=== PATIENT | female | born 1975 | race Caucasian/White ===

== ENCOUNTER 2016-08-09 03:51 | Emergency (ER) | payer OTHER ==
--- NOTE | 2016-08-09 05:12 | ED CLINICAL REPORT ---
Clinical Report - Physicians/Mid Levels [facility] [address] [place] [address] 08/09/2016 3:56 Patient: LOUISE FORBES Arrived- By private vehicle. Historian- patient. HISTORY OF PRESENT ILLNESS Chief Complaint: Injury to the left hand. The injury happened today. 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 Patient is experiencing moderate pain. Patient denies injury to the head or neck. No other injury. REVIEW OF SYSTEMS The patient sustained a laceration. No swelling, tingling, numbness, weakness or foreign body. All systems otherwise negative, except as recorded above. PAST HISTORY See nurses notes. Tetanus immunization status is up-to-date. Medications: None. Allergies: No Known Drug Allergy. SOCIAL HISTORY Smoker- current status unknown. No alcohol use or drug use. Is a local resident. ADDITIONAL NOTES The nursing notes have been reviewed. PHYSICAL EXAM Vital Signs: 08/09/2016 04:12 BP: 178/105. HR: 92. RR: 16. O2 saturation: 98%. Temp: 98.5 F. Hypertensive. Oxygen saturation normal. Appearance: Alert. Oriented X3. No acute distress. Head: Head atraumatic. Eyes: Pupils equal, round and reactive to light. Eyes normal inspection. ENT: Ears normal. Nose normal. Pharynx normal. Neck: Normal inspection. Neck supple. C-spine non-tender. CVS: Normal heart rate and rhythm. Heart sounds normal. Pulses normal. Respiratory: No respiratory distress. Breath sounds normal. Chest nontender. Abdomen: No visible injury. Soft and nontender. Bowel sounds normal. No organomegaly. No mass. Femoral pulses equal. Extremities: (2 cm lac to the dorsum of the left hand over the index finger MCP joint. Does not go into joint. NO tendon involvement. NO neurovascular involvement on exam. Sensation intact. Cap refill < 3 sec. No contamination or FB. Does go to the sub Q tissue. No bone exposed.). Extremities otherwise negative. PROGRESS AND PROCEDURES Laceration Repair: Wound depth/shape- subcutaneous. Distal neuro/vascular/tendon status normal. No sensory deficit, motor deficit or vascular deficit distally. No ligament or tendon injury or tendon deficit or laceration. Local anesthesia provided using 1% lidocaine. Prepped with Betadine. Wound explored, irrigated and examined to the base in bloodless field extensively with normal saline. Closure of skin: interrupted 4-0 nylon (4 sutures). Post-procedure: she is stable and there are no complications. Bleeding is controlled and neuro-vascular status is intact distal to the wound. Clean dressing consisting of Band-Aid was applied. Following the application of antibiotic ointment. Tetanus immunization up-to-date. ( patient very anxious about procedure. Requested tech for reassurance and comfort. Did tolerate procedure well.). Course of Care: he patient is a pleasant 41-year-old female presenting for evaluation of laceration to the dorsum of the left hand. No neurovascular involvement. Bleeding is controlled. Tetanus status is up-to-date. Wound is linear and regular. No signs of foreign body. Do not feel x-rays are warranted at this time. No ligamentous involvement. Does not go into the joint. Had discussion with patient in regards to Dermabond versus suturing. Recommended suturing at this time however patient was very hesitant about procedure. Patient reports that she is very nervous with needles. Patient had a somewhat difficult time in controlling her anxiety for the procedure. Patient was eventually agreeable to the procedure of suturing. Informed verbal consent obtained. Please see procedure note for further details. Wound was closed without any competitions or abnormalities. Patient continued to be neurovascularly intact. Do not feel antibiotics are warranted at this time. Wound infection risk explained to patient. Discussed with patient workup, diagnosis, home care, follow-up, and return precautions. All questions answered. The patient expressed understanding of these instructions and was agreeable to them. Disposition: Discharged. Condition: good. CLINICAL IMPRESSION 08/09/2016 04:12 BP: 178/105. HR: 92. RR: 16. O2 saturation: 98%. Temp: 98.5 F. Hypertensive. Oxygen saturation normal. Single superficial laceration to the left hand. (dorsal). No foreign body present. Essential hypertension. INSTRUCTIONS (Keep dry for 24 hours. You may wash the area with gentle soap and warm water after 24 hours. You are NOT to soak the wound at anytime until the wound is closed AND the sutures are removed. Sutures need to be in for 10 - 14 days). Your Current Medications: CONTINUE TAKING THE FOLLOWING MEDICATIONS: None*. OTC Medications: Acetaminophen (available over the counter): take according to label instructions. Motrin (available over the counter): take according to label instructions. Follow-up: Return to the emergency department as needed. Follow up with your doctor in five days. Reason for referral: recheck today's concerns. Summary of care provided to patient via paper. Screening today revealed the patient's blood pressure to be in the hypertensive range. The patient should follow up with a primary care provider for blood pressure management. Understanding of the discharge instructions verbalized by patient. (Electronically signed by Chris Ludwig Dr. 08/15/2016 22:02)
--- NOTE | 2016-08-09 05:12 | ED NURSING NOTES ---
Clinical Report - Nurses [facility] [address] [place] [address] 08/09/2016 3:56 Patient: LOUISE FORBES TRIAGE Triage time 0405. Acuity: LEVEL 4. Chief Complaint: INJURY TO THE LEFT HAND. Alert. No acute distress. (agitated, hyper, rapid speech). --04:16 Vita Quan 04:12 08/09/16. BP: 178/105. HR: 92. RR: 16. O2 saturation: 98%. Temp: 98.5 F. Pain level now 07/15. --04:16 Vita Quan. Weight: 77.1 kg. Height/Length: 66 inches. BMI: 27.4. --04:12 Vita Quan. Medications None. --04:14 Vita Quan. Allergies No Known Drug Allergy. --04:14 Vita Quan. History Arrived by private vehicle. Historian: patient. This occurred just prior to arrival. She sustained a laceration. 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 PAST MEDICAL HX: Tetanus status: up-to-date. SOCIAL HX: Heavy tobacco smoker (cigarette)- 1 pack per day. Alcohol use; consumes three beers a day. Patient smells of ETOH in the emergency department. --04:16 Vita Quan. Interventions ID band on patient. To treatment room. --04:16 Vita Quan. PHYSICAL ASSESSMENT Ambulatory to room. GENERAL / NEURO / PSYCH: Oriented X 4. Appears anxious. EXTREMITIES: Capillary refill is less than 2 seconds in the extremities. Extremity pulses are within normal limits. Extremities exhibit normal ROM. Neuro-vascular status intact to the extremity. Left hand: subcutaneous 1.5 cm laceration with controlled bleeding localized to the dorsal aspect of the hand. SKIN: Skin is warm and dry. --04:17 Vita Quan. DISPOSITION / DISCHARGE Departure time: 05. Condition at departure: improved and stable. No learning barriers present. Discharge instructions provided and reviewed with the patient. Reviewed medication(s). Patient verbalized understanding. Written instructions provided in Congolese. The patient was discharged by the physician. She was discharged home. She left the Emergency Department ambulatory and via private vehicle. Patient driving. --05:24 Vita Quan 05:23 08/09/16. BP: 155/98. HR: 70. RR: 18. O2 saturation: 98%. Pain level now 07/15. --05:24 Vita Quan. Locked/Released at 08/09/2016 5:25 by Vita Quan,
--- NOTE | 2016-08-09 05:12 | ED NURSING NOTES ---
Clinical Report - Nurses [facility] [address] [place] [address] 08/09/2016 3:56 Patient: LOUISE FORBES TRIAGE Triage time 0405. Acuity: LEVEL 4. Chief Complaint: INJURY TO THE LEFT HAND. Alert. No acute distress. (agitated, hyper, rapid speech). --04:16 Vita Quan 04:12 08/09/16. BP: 178/105. HR: 92. RR: 16. O2 saturation: 98%. Temp: 98.5 F. Pain level now 07/15. --04:16 Vita Quan. Weight: 77.1 kg. Height/Length: 66 inches. BMI: 27.4. --04:12 Vita Quan. Medications None. --04:14 Vita Quan. Allergies No Known Drug Allergy. --04:14 Vita Quan. History Arrived by private vehicle. Historian: patient. This occurred just prior to arrival. She sustained a laceration. 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 PAST MEDICAL HX: Tetanus status: up-to-date. SOCIAL HX: Heavy tobacco smoker (cigarette)- 1 pack per day. Alcohol use; consumes three beers a day. Patient smells of ETOH in the emergency department. --04:16 Vita Quan. Interventions ID band on patient. To treatment room. --04:16 Vita Quan. PHYSICAL ASSESSMENT Ambulatory to room. GENERAL / NEURO / PSYCH: Oriented X 4. Appears anxious. EXTREMITIES: Capillary refill is less than 2 seconds in the extremities. Extremity pulses are within normal limits. Extremities exhibit normal ROM. Neuro-vascular status intact to the extremity. Left hand: subcutaneous 1.5 cm laceration with controlled bleeding localized to the dorsal aspect of the hand. SKIN: Skin is warm and dry. --04:17 Vita Quan. DISPOSITION / DISCHARGE Departure time: 05. Condition at departure: improved and stable. No learning barriers present. Discharge instructions provided and reviewed with the patient. Reviewed medication(s). Patient verbalized understanding. Written instructions provided in Brazilian. The patient was discharged by the physician. She was discharged home. She left the Emergency Department ambulatory and via private vehicle. Patient driving. --05:24 Vita Quan 05:23 08/09/16. BP: 155/98. HR: 70. RR: 18. O2 saturation: 98%. Pain level now 07/15. --05:24 Vita Quan. Locked/Released at 08/09/2016 5:25 by Vita Quan,
--- NOTE | 2016-08-15 22:03 | ED MED RECONCILIATION SUMMARY ---
Patient: LOUISE FORBES Medication Reconciliation Report [facility] VisitID: [id number] [address] [place] [address] 41y, F Registration Date/Time: 08/09/2016 Weight: 77.1 kg Height/Length: 66 in. BMI: 27.4 ALLERGIES: No Known Drug Allergy The patient's Home Medications are listed below: NONE. The source(s) of the original Home Medication information: Not obtained. The following Medications were given to the patient in the Emergency Department: None. The following Medications were prescribed to the patient: Acetaminophen (available over the counter): take according to label instructions. -- Chris Ludwig Dr. Motrin (available over the counter): take according to label instructions. -- Chris Ludwig Dr.
--- NOTE | 2016-08-15 22:03 | ED MED RECONCILIATION SUMMARY ---
Patient: LOUISE FORBES Medication Reconciliation Report [facility] VisitID: [id number] [address] [place] [address] 41y, F Registration Date/Time: 08/09/2016 Weight: 77.1 kg Height/Length: 66 in. BMI: 27.4 ALLERGIES: No Known Drug Allergy The patient's Home Medications are listed below: NONE. The source(s) of the original Home Medication information: Not obtained. The following Medications were given to the patient in the Emergency Department: None. The following Medications were prescribed to the patient: Acetaminophen (available over the counter): take according to label instructions. -- Chris Ludwig Dr. Motrin (available over the counter): take according to label instructions. -- Chris Ludwig Dr.
--- NOTE | 2016-08-15 22:03 | ED DISCHARGE INSTRUCTIONS ---
Patient: LOUISE FORBES General Instructions [facility] VisitID: [id number] [place] [address] 41y, F Registration Date/Time: 08/09/2016 08/09/2016 04:12 BP: 178/105. HR: 92. RR: 16. O2 saturation: 98%. Temp: 98.5 F. Hypertensive. Oxygen saturation normal. Single superficial laceration to the left hand. (dorsal). No foreign body present. Essential hypertension. INSTRUCTIONS (Keep dry for 24 hours. You may wash the area with gentle soap and warm water after 24 hours. You are NOT to soak the wound at anytime until the wound is closed AND the sutures are removed. Sutures need to be in for 10 - 14 days). Your Current Medications: CONTINUE TAKING THE FOLLOWING MEDICATIONS: None*. OTC Medications: Acetaminophen (available over the counter): take according to label instructions. Motrin (available over the counter): take according to label instructions. Follow-up: Return to the emergency department as needed. Follow up with your doctor in five days. Reason for referral: recheck today's concerns. Summary of care provided to patient via paper. Screening today revealed the patient's blood pressure to be in the hypertensive range. The patient should follow up with a primary care provider for blood pressure management. Understanding of the discharge instructions verbalized by patient. ADDITIONAL INFORMATION Laceration (All Closures) Alaceration is a cut through the skin. This will usually require stitches (sutures) or fallon if it is deep. Minor cuts may be treated with a surgical tape closure orskin glue. Home care The following guidelines will help you care for your laceration at home: Extremity, face, or trunk wounds Keep the wound clean and dry. If a bandage was applied and it becomes wet or dirty, replace it. Otherwise, leave it in place for the first 24 hours. If stitches or fallon were used, clean the wound daily. After removing the bandage, wash the area with soap and water. Use a wet cotton swab to loosen and remove any blood or crust that forms. The doctor may prescribe an antibiotic cream or ointment to prevent infection. Do not stop taking this medication until you have finished the prescribed course or the doctor tells you to stop. The doctor may also prescribe medications for pain. Follow the doctors instructions for taking these medications. You may remove the bandage to shower as usual after the first 24 hours, but do not soak the area in water (no swimming) until the stitches or fallon are removed. If surgical tape was used, keep the area clean and dry. If it becomes wet, blot it dry with a towel. If skin glue was used, do not scratch, rub, or pick at the adhesive film. Do not place tape directly over the film. Do not apply liquid, ointment, or creams to the wound while the film is in place. Do not clean the wound with peroxide and do not apply ointments. Avoid activities that cause heavy sweating until the film has fallen off. Protect the wound from prolonged exposure to sunlight or tanning lamps. You may shower as usual but do not soak the wound in water (no baths or swimming). The film will fall off by itself in 510 days. Scalp wounds During the first two days, you may carefully rinse your hair in the shower to remove blood, glass or dirt particles. After two days, you may shower and shampoo your hair normally. Do not soak your scalp in the tub or go swimming until the stitches or fallon have been removed. Talk with your doctor before applying any antibiotic ointment to the wound. Mouth wounds Eat soft foods to reduce pain. If the cut is inside of your mouth, clean by rinsing after each meal and at bedtime with a mixture of equal parts water and hydrogen peroxide (do not swallow!). Or, you can use a cotton swab to directly apply hydrogen peroxide onto the cut. Mouth wounds can be painful when eating. You may use an [id number] local numbing solution for pain relief. If this is not available, you may use any numbing solution for teething babies. You may apply this directly to the sores with a cotton-tip swab or with your finger. Follow-up care Follow up with your health care provider. Most skin wounds heal within ten days. Mouth and facial wounds heal within five days. However, even with proper treatment, a wound infection may sometimes occur. Therefore, you should check the wound daily for signs of infection listed below. Stitches should be removed from the face within five days; stitches and fallon should be removed from other parts of the body within 714 days. If dissolving stitches were used in the mouth, these will fall out or dissolve without the need for removal. If tape closures were used, remove them yourself if they have not fallen off after 7 days. Ifskin glue was used, the film will fall off by itself in 510 days. When to seek medical care Get prompt medical attention if any of these occur: Bleeding not controlled by direct pressure Signs of infection, including increasing pain in the wound, increasing wound redness or swelling, or pus coming from the wound Fever of 100.4F (38C) or higher, or as directed by your health care provider Stitches or fallon come apart or fall out or surgical tape falls off before 7 days Wound edges re-open High Blood Pressure -- To Be Confirmed [No Tx] Your blood pressure was higher today than normal. Sometimes anxiety or pain can cause a temporary rise in blood pressure that later returns to normal. If your blood pressure is high on one measurement, this does not mean that you have hypertension (a chronic illness). However, you must have your blood pressure measured again within the next few days to find out if its still high. A normal blood pressure is 120/80 or less. The first (top) number is the "systolic" pressure. The second (bottom) number is the "diastolic" pressure. Hypertension exists when either the top number is 140 or higher, OR the bottom number is 90 or higher on repeated measurements. Blood pressure in the range of 120-140 (systolic) or 80-89 (diastolic) is considered "pre-hypertension". This means your are at risk for getting hypertension. You should have regular blood pressure checks to be sure your blood pressure is not rising. Home Care: Measure your blood pressure on 3 different days and write down the results. This can be done at your doctor's office or this facility. Some pharmacies and grocery stores offer automated blood pressure machines for your use. Follow Up: If your blood pressure is "high" (over 120/80) on 2 out of 3 days, you will need to follow up with your doctor for further evaluation and treatment. DO NOT PUT THIS OFF! Untreated high blood pressure increases the risk for heart attack, also known as acute myocardial infarction, or AMI, and stroke. It is a treatable condition. Get Prompt Medical Attention if any of the following occur: Chest pain or shortness of breath Severe headache Throbbing or rushing sound in the ears Nosebleed Sudden severe abdominal pain Extreme drowsiness, confusion or fainting Dizziness or vertigo (dizziness with spinning sensation) Weakness of an arm or leg or one side of the face Difficulty with speech or vision You have been given the following additional information: Laceration, All Hypertension, To Be Confirmed (Electronically signed by Chris Ludwig Dr. 08/15/2016 22:02)
--- NOTE | 2016-08-15 22:03 | ED MAR SUMMARY ---
..... Medication Administration Record [facility] [address] [place], [place] [id number] Patient: LOUISE FORBES Visit ID: [id number] 41y, F Weight: 77.1 kg Height/Length: 66 in BMI: 27.4 ALLERGIES: No Known Drug Allergy
--- NOTE | 2016-08-15 22:03 | ED MAR SUMMARY ---
..... Medication Administration Record [facility] [address] [place], [place] [id number] Patient: LOUISE FORBES Visit ID: [id number] 41y, F Weight: 77.1 kg Height/Length: 66 in BMI: 27.4 ALLERGIES: No Known Drug Allergy
== END 2016-08-09 05:20 | disposition home or self-care (01) ==
LOC: ED SRH 03:51
PROC: 0HQGXZZ Repair Left Hand Skin, External Approach (ICD-10-PCS; principal; 2016-08-09)
DX: S61.412A Laceration without foreign body of left hand, initial encounter (principal); W45.8XXA Other foreign body or object entering through skin, initial encounter; Y93.89 Activity, other specified; Y92.69 Other specified industrial and construction area as the place of occurrence of the external cause; Y99.0 Civilian activity done for income or pay; I10 Essential (primary) hypertension